=== PATIENT | female | born 1935 | race Hispanic/Latino ===

== ENCOUNTER → 2020-10-11 | Outpatient (CLI) | payer OTHER | END | disposition home or self-care (01) | LOC: OIH 16:31 | PROVIDERS: ATTEND Internal Medicine Cardiovascular Disease | DX: Z13.6 Encounter for screening for cardiovascular disorders (principal) | CPT/HCPCS: 75571 ==

== ENCOUNTER 2021-07-14 13:17 | Emergency (ER) | payer MEDICARE, OTHER ==
[~2021-07-14] VITALS: Ht 157.5 cm; Wt 65.8 kg
[2021-07-14 13:59] LABS: BASOPHILS % (AUTO) 0.4 % (0.0-5.0); EOSINOPHILS % (AUTO) 1.9 % (0.0-8.0); HEMATOCRIT 31.2 % (36-48); LYMPHOCYTES % (AUTO) 19.6 % (21.0-51.0); MEAN CORPUSCULAR HEMOGLOBIN 30.6 pg (27.0-33.0); MEAN CORPUSCULAR VOLUME 90.2 fL (79-99); MONOCYTES % (AUTO) 4.9 % (3.0-13.0); NEUTROPHILS % (AUTO) 72.5 % (40.0-77.0); PLATELET COUNT (AUTO) 422 K/uL (130-400); RED BLOOD CELL COUNT(AUTO) 3.46 MIL/uL (4.00-5.50); RED CELL DISTRIBUTION WIDTH 13.2 % (11.0-15.5); WHITE BLOOD COUNT (AUTO) 10.9 K/uL (4.8-10.8)
[2021-07-14] MEDS ORDERED: KETOROLAC 15MG/ML VIAL (15MG/ML) IV ONE (14:00)
[2021-07-14 14:21] LABS: ALBUMIN 3.7 g/dL (3.5-5.0); B-TYPE NATRIURETIC PEPTIDE 93 pg/mL (0-100); BILIRUBIN,TOTAL 0.2 mg/dL (0.2-1.0); CREATININE 1.1 mg/dL (0.5-1.5); POTASSIUM 4.3 mmol/L (3.5-5.1); TOTAL PROTEIN, SERUM 6.9 g/dL (6.0-8.3)
[2021-07-14] MEDS ORDERED: [UNRECOGNIZED DRUG - CODE] PO (16:20)
[2021-07-14 16:39] VITALS: BP 164/73
== END 2021-07-14 16:40 | disposition home or self-care (01) ==
LOC: EDH 13:17
DX: R07.89 Other chest pain (principal); E78.00 Pure hypercholesterolemia, unspecified; I11.9 Hypertensive heart disease without heart failure; E11.9 Type 2 diabetes mellitus without complications; Z79.1 Long term (current) use of non-steroidal anti-inflammatories (NSAID)
CPT/HCPCS: 36415; 71045; 80053; 83880; 84484; 85025; 93005; 96374; 99285; J1885

== ENCOUNTER 2022-05-19 15:05 | Emergency (ER) | payer MEDICARE ==
[~2022-05-19] VITALS: Ht 157.5 cm; Wt 65.8 kg
[~2022-05-19 15:05] MED LIST changes: -KCL 20 MEQ ERTAB PO ONE; -LORAZEPAM 1 MG TABLET ONE; -LORAZEPAM 1 MG TABLET PO ONE; -MAGNESIUM OXIDE 400 MG TABLET PO ONE
[2022-05-19 15:51] LABS: BASOPHILS % (AUTO) 0.2 % (0.0-5.0); HEMATOCRIT 32.6 % (36-48); LYMPHOCYTES % (AUTO) 18.8 % (21.0-51.0); MEAN CORPUSCULAR HEMOGLOBIN 30.3 pg (27.0-33.0); MEAN CORPUSCULAR HGB CONC 34.4 g/dL (32.0-36.0); MEAN CORPUSCULAR VOLUME 88.1 fL (79-99); MONOCYTES % (AUTO) 5.8 % (3.0-13.0); NEUTROPHILS % (AUTO) 71.6 % (40.0-77.0); PLATELET COUNT (AUTO) 362 K/uL (130-400); RED CELL DISTRIBUTION WIDTH 12.7 % (11.0-15.5); WHITE BLOOD COUNT (AUTO) 12.5 K/uL (4.8-10.8)
[2022-05-19 15:52] VITALS: BP 175/52
[2022-05-19 16:03] LABS: POTASSIUM 3.7 mmol/L (3.5-5.1)
[2022-05-19 16:11] LABS: ALBUMIN 3.7 g/dL (3.5-5.0); TOTAL PROTEIN, SERUM 7.1 g/dL (6.0-8.3)
[2022-05-19] MEDS ORDERED: DIAZEPAM 5 MG/ML 2 ML SYG IVP ONE (16:30)
== END 2022-05-19 17:30 | disposition home or self-care (01) ==
LOC: EDH 15:05
DX: F15.980 Other stimulant use, unspecified with stimulant-induced anxiety disorder (principal); E11.9 Type 2 diabetes mellitus without complications; E78.00 Pure hypercholesterolemia, unspecified; I10 Essential (primary) hypertension; Z98.890 Other specified postprocedural states
CPT/HCPCS: 99284; 96374; 84484; 80053; 85025; 36415; 93005; J3360

== ENCOUNTER → 2022-05-19 | Emergency (ER) | payer MEDICARE ==
[~2022-05-19] VITALS: Ht 157.5 cm; Wt 59.0 kg
[~2022-05-19] MED LIST: KCL 20 MEQ ERTAB PO ONE; LORAZEPAM 1 MG TABLET ONE; LORAZEPAM 1 MG TABLET PO ONE; MAGNESIUM OXIDE 400 MG TABLET PO ONE; [UNRECOGNIZED DRUG - CODE] PO
[2022-05-19 21:24] LABS: BASOPHILS % (AUTO) 0.3 % (0.0-5.0); EOSINOPHILS % (AUTO) 0.2 % (0.0-8.0); HEMATOCRIT 35.2 % (36-48); LYMPHOCYTES % (AUTO) 10.3 % (21.0-51.0); MEAN CORPUSCULAR HEMOGLOBIN 30.3 pg (27.0-33.0); MEAN CORPUSCULAR HGB CONC 34.7 g/dL (32.0-36.0); MEAN CORPUSCULAR VOLUME 87.6 fL (79-99); MONOCYTES % (AUTO) 3.9 % (3.0-13.0); NEUTROPHILS % (AUTO) 84.5 % (40.0-77.0); PLATELET COUNT (AUTO) 357 K/uL (130-400); RED BLOOD CELL COUNT(AUTO) 4.02 MIL/uL (4.00-5.50); RED CELL DISTRIBUTION WIDTH 12.6 % (11.0-15.5); WHITE BLOOD COUNT (AUTO) 14.4 K/uL (4.8-10.8)
[2022-05-19 21:32] LABS: CARBON DIOXIDE 26 mmol/L (21-32); CHLORIDE 94 mmol/L (101-111); CREATININE 1.1 mg/dL (0.5-1.5); GLOMERULAR FILTR. RATE CALC 50 mL/min (>60); GLUCOSE,RANDOM 207 mg/dL (70-105); POTASSIUM 3.3 mmol/L (3.5-5.1); SODIUM SERUM 130 mmol/L (136-145); UREA NITROGEN, BLOOD 17 mg/dL (7-18)
[2022-05-19 21:38] LABS: ALANINE AMINOTRANSFERASE 22 U/L (12-78); ALBUMIN 3.9 g/dL (3.5-5.0); ALCOHOL, BLOOD < 3 mg/dL (0-10); ASPARTATE AMINOTRANSFERASE 27 U/L (10-37); CREATINE KINASE, TOTAL 145 U/L (21-232); TOTAL PROTEIN, SERUM 7.6 g/dL (6.0-8.3)
[2022-05-19 21:40] LABS: ACETAMINOPHEN < 1 mcg/mL (10-30); SALICYLATE < 2.8 mg/dL (2.8-20.0)
[2022-05-19 21:43] LABS: APPEARANCE,URINE CLEAR (CLEAR); BILIRUBIN,URINE NEGATIVE (NEGATIVE); COLOR,URINE YELLOW (YELLOW); GLUCOSE, URINE (UA) 500 mg/dL (NEGATIVE); KETONES,URINE NEGATIVE (NEGATIVE); LEUKOCYTE ESTERASE ,URINE NEGATIVE Leu/uL (NEGATIVE); NITRATE,URINE NEGATIVE (NEGATIVE); OCCULT BLOOD,URINE NEGATIVE (NEGATIVE); PH,URINE 5.5 (5.0-8.0); PROTEIN,URINE 20 mg/dL (NEGATIVE); UROBILINOGEN,URINE 0.2 mg/dL (0.2-1.0)
[2022-05-19 21:45] LABS: AMPHET/METH SCREEN,URINE NEGATIVE (NEGATIVE); BARBITURATE SCREEN, URINE NEGATIVE (NEGATIVE); BENZODIAZEPINES SCREEN,URINE NEGATIVE (NEGATIVE); CANNABINOID SCREEN,URINE NEGATIVE (NEGATIVE); COCAINE SCREEN,URINE NEGATIVE (NEGATIVE); PHENCYCLIDINE SCREEN,URINE NEGATIVE (NEGATIVE)
[2022-05-19 21:51] LABS: SQUAMOUS EPITHELIAL CELL,UR RARE /HPF (0-2); WBC,URINE 0-1 /HPF (0-1)
[2022-05-20 01:36] VITALS: BP 134/75
== END | disposition home or self-care (01) ==
LOC: EDH 20:15
DX: R20.8 Other disturbances of skin sensation (principal); F41.9 Anxiety disorder, unspecified; G47.00 Insomnia, unspecified; E11.9 Type 2 diabetes mellitus without complications; I10 Essential (primary) hypertension; E78.00 Pure hypercholesterolemia, unspecified; F32.A Depression, unspecified; Z98.890 Other specified postprocedural states
CPT/HCPCS: 99285; 70450; 82550; 83735; 80053; 80305; 85025; 83605; 36415; 74176; 93005; 81001; G0481

== ENCOUNTER 2022-06-30 16:05 | Emergency (ER) | payer MEDICARE ==
[~2022-06-30] VITALS: Ht 154.9 cm; Wt 64.0 kg
[2022-06-30 16:45] LABS: BASOPHILS % (AUTO) 0.4 % (0.0-5.0); EOSINOPHILS % (AUTO) 4.1 % (0.0-8.0); HEMATOCRIT 33.2 % (36-48); LYMPHOCYTES % (AUTO) 25.8 % (21.0-51.0); MEAN CORPUSCULAR HEMOGLOBIN 30.3 pg (27.0-33.0); MONOCYTES % (AUTO) 6.3 % (3.0-13.0); PLATELET COUNT (AUTO) 367 K/uL (130-400); RED BLOOD CELL COUNT(AUTO) 3.73 MIL/uL (4.00-5.50); RED CELL DISTRIBUTION WIDTH 14.5 % (11.0-15.5); WHITE BLOOD COUNT (AUTO) 8.1 K/uL (4.8-10.8)
[2022-06-30 16:53] LABS: POTASSIUM 3.7 mmol/L (3.5-5.1)
[2022-06-30 16:55] LABS: INR 1.02 (0.85-1.15); PROTHROMBIN TIME 11.1 SEC (9.6-11.6)
[2022-06-30 16:56] LABS: PARTIAL THROMBOPLASTIN TIME 24.3 SEC (26.3-35.5)
[2022-06-30 16:58] LABS: ALBUMIN 3.6 g/dL (3.5-5.0); TOTAL PROTEIN, SERUM 7.3 g/dL (6.0-8.3)
[2022-06-30 18:29] VITALS: BP 167/56
== END 2022-06-30 18:27 | disposition home or self-care (01) ==
LOC: EDH 16:05
DX: S00.03XA Contusion of scalp, initial encounter (principal); E11.9 Type 2 diabetes mellitus without complications; E78.00 Pure hypercholesterolemia, unspecified; F03.90 Unspecified dementia, unspecified severity, without behavioral disturbance, psychotic disturbance, mood disturbance, and anxiety; I10 Essential (primary) hypertension; W18.39XA Other fall on same level, initial encounter; Y93.89 Activity, other specified; Y92.89 Other specified places as the place of occurrence of the external cause; Y99.8 Other external cause status
CPT/HCPCS: 36415; 70450; 72125; 80053; 85025; 85610; 85730; 93005

== ENCOUNTER 2022-07-26 20:22 | Observation (INO) | payer MEDICARE ==
[~2022-07-26] VITALS: Ht 157.5 cm; Wt 60.3 kg
[2022-07-26 20:44] LABS: BASOPHILS % (AUTO) 0.2 % (0.0-5.0); EOSINOPHILS % (AUTO) 1.6 % (0.0-8.0); HEMATOCRIT 34.6 % (36-48); LYMPHOCYTES % (AUTO) 24.8 % (21.0-51.0); MEAN CORPUSCULAR HEMOGLOBIN 30.3 pg (27.0-33.0); MEAN CORPUSCULAR HGB CONC 34.1 g/dL (32.0-36.0); MEAN CORPUSCULAR VOLUME 88.7 fL (79-99); MONOCYTES % (AUTO) 8.4 % (3.0-13.0); NEUTROPHILS % (AUTO) 64.7 % (40.0-77.0); PLATELET COUNT (AUTO) 367 K/uL (130-400); RED CELL DISTRIBUTION WIDTH 13.8 % (11.0-15.5); WHITE BLOOD COUNT (AUTO) 8.7 K/uL (4.8-10.8)
[2022-07-26 21:01] LABS: CREATININE 0.9 mg/dL (0.5-1.5); POTASSIUM 3.8 mmol/L (3.5-5.1)
[2022-07-26 21:12] LABS: ALBUMIN 3.5 g/dL (3.5-5.0); TOTAL PROTEIN, SERUM 7.1 g/dL (6.0-8.3)
[2022-07-26 21:28] LABS: APPEARANCE,URINE CLEAR (CLEAR); BILIRUBIN,URINE NEGATIVE (NEGATIVE); COLOR,URINE YELLOW (YELLOW); GLUCOSE, URINE (UA) NEGATIVE (NEGATIVE); KETONES,URINE NEGATIVE (NEGATIVE); LEUKOCYTE ESTERASE ,URINE MODERATE Leu/uL (NEGATIVE); NITRATE,URINE NEGATIVE (NEGATIVE); OCCULT BLOOD,URINE TRACE-INTACT (NEGATIVE); PROTEIN,URINE NEGATIVE (NEGATIVE)
[2022-07-26] MEDS ORDERED: 0.9% NACL 500ML IV.SOLN 500 ML IV ONE (21:30)
[2022-07-26 21:37] LABS: BACTERIA,URINE Few /HPF (None Seen)
[2022-07-26 21:38] LABS: COARSE GRANULAR CASTS,URINE 0-2 /LPF (None Seen)
[2022-07-26] MEDS ORDERED: HYDRALAZINE 20MG/ML VIAL IV STA (23:23)
[2022-07-26] MEDS ORDERED: HYDRALAZINE 20MG/ML VIAL ONE (23:23)
[2022-07-26] MEDS ORDERED: LABETALOL 20MG VIAL IV ONE (23:30)
[2022-07-27] MEDS ORDERED: ONDANSETRON 4MG INJ IV PRN
[2022-07-27] MEDS ORDERED: GLUCAGON 1MG KIT 1 MG ML IM PRN
[2022-07-27] MEDS ORDERED: ACETAMINOPHEN 325 MG TAB PO PRN ×2
[2022-07-27] MEDS ORDERED: DEXTROSE 50%-WATER 50 ML DISP.SYRIN IV PRN
[2022-07-27] MEDS: METOPROLOL TARTRATE 25 MG TAB PO SCH ×2 (00:14→08:50)
[2022-07-27 01:40] LABS: HEMOGLOBIN A1C 5.7 % (4.0-6.0)
[2022-07-27 02:27] VITALS: BP 167/45
[2022-07-27] MEDS ORDERED: AEC81 PO (03:19)
[2022-07-27] MEDS ORDERED: AMLO-258 PO (03:19)
[2022-07-27] MEDS ORDERED: CARV12.511 PO (03:19)
[2022-07-27] MEDS ORDERED: MV C1CAP5 PO (03:19)
[2022-07-27] MEDS ORDERED: TELM80TA10 PO ×3 (03:19→12:58)
[2022-07-27] MEDS ORDERED: FENO160T16 PO (03:19)
[2022-07-27] MEDS ORDERED: DONE5TAB33 PO (03:19)
[2022-07-27] MEDS ORDERED: TRAZ-185 PO (03:19)
[2022-07-27 04:36] VITALS: BP 148/39
[2022-07-27 05:47] LABS: BASOPHILS % (AUTO) 0.4 % (0.0-5.0); EOSINOPHILS % (AUTO) 2.4 % (0.0-8.0); HEMATOCRIT 32.4 % (36-48); LYMPHOCYTES % (AUTO) 27.5 % (21.0-51.0); MEAN CORPUSCULAR HEMOGLOBIN 29.7 pg (27.0-33.0); MEAN CORPUSCULAR HGB CONC 33.3 g/dL (32.0-36.0); MONOCYTES % (AUTO) 7.5 % (3.0-13.0); PLATELET COUNT (AUTO) 350 K/uL (130-400); RED BLOOD CELL COUNT(AUTO) 3.64 MIL/uL (4.00-5.50); RED CELL DISTRIBUTION WIDTH 13.7 % (11.0-15.5); WHITE BLOOD COUNT (AUTO) 8.1 K/uL (4.8-10.8)
[2022-07-27 06:08] LABS: CREATININE 0.8 mg/dL (0.5-1.5); MAGNESIUM 1.9 mg/dL (1.80-2.40); POTASSIUM 3.3 mmol/L (3.5-5.1); TOTAL PROTEIN, SERUM 6.3 g/dL (6.0-8.3)
[2022-07-27] MEDS: INSULIN HUMULIN R 100 UNIT/ML 3ML SQ SCH ×2 (06:44→11:30)
[2022-07-27] MEDS ORDERED: ENOXAPARIN SODIUM 30 MG/0.3 ML SQ SCH (09:00)
[2022-07-27] MEDS ORDERED: ASPIRIN 81 MG EC TAB PO SCH (09:00)
[2022-07-27] MEDS ORDERED: FAMOTIDINE 20MG TAB PO SCH (09:00)
[2022-07-27] MEDS ORDERED: LIDOCAINE HCL-MPF 1% 2ML VIAL IV PRN (09:30)
[2022-07-27] MEDS ORDERED: POTASSIUM CHLORIDE 10% ELIXIR 20 MEQ/15 ML UDCUP PO PRN (09:30)
[2022-07-27] MEDS ORDERED: POTASSIUM CHLORIDE 20MEQ/100ML 100 ML IV PRN (09:30)
[2022-07-27] MEDS ORDERED: KCL 20 MEQ ERTAB PO PRN (09:30)
[2022-07-27] MEDS ORDERED: FE FUMARATE/FA/MV, MIN COMB#15 1 TAB PO SCH (11:03)
[2022-07-27] MEDS ORDERED: NITROGLYCERIN 0.4 MG SL TAB SL PRN ×2 (12:00)
[2022-07-27] MEDS ORDERED: LOSARTAN 100 MG TABLET PO SCH ×2 (12:01→21:00)
[2022-07-27] MEDS ORDERED: Nitroglycerin 0.4MG Sl Tab SL (12:50)
[2022-07-27] MEDS ORDERED: CARV25TA PO (12:50)
[2022-07-27] MEDS ORDERED: TRAZODONE HCL 50 MG TAB PO SCH (21:00)
[2022-07-27] MEDS ORDERED: CARVEDILOL 25 MG TABLET PO SCH (21:00)
[2022-07-27] MEDS ORDERED: ISOSORBIDE DINITRATE 10MG TAB PO SCH (21:00)
[2022-07-28] MEDS ORDERED: DONEPEZIL HCL 5 MG TAB PO SCH (09:00)
[2022-07-28] MEDS ORDERED: FENOFIBRATE 160 MG PO SCH (09:00)
[2022-07-28] MEDS ORDERED: AMLODIPINE 5 MG TAB PO SCH (09:00)
== END 2022-07-27 14:00 | disposition home or self-care (01) ==
LOC: EDH 20:22 → INTOOBSV 23:55 → EDHIP 23:55 → 4BH 07-27 02:15
PROVIDERS: ADMIT Internal Medicine; ATTEND Internal Medicine
DX: I10 Essential (primary) hypertension (principal); Z20.822 Contact with and (suspected) exposure to COVID-19; R82.71 Bacteriuria; I21.4 Non-ST elevation (NSTEMI) myocardial infarction; R77.8 Other specified abnormalities of plasma proteins; E78.2 Mixed hyperlipidemia; E11.9 Type 2 diabetes mellitus without complications; C64.1 Malignant neoplasm of right kidney, except renal pelvis; E78.00 Pure hypercholesterolemia, unspecified; I25.10 Atherosclerotic heart disease of native coronary artery without angina pectoris; I63.9 Cerebral infarction, unspecified; J10.1 Influenza due to other identified influenza virus with other respiratory manifestations; Z90.710 Acquired absence of both cervix and uterus; Z79.899 Other long term (current) drug therapy; Z98.890 Other specified postprocedural states
CPT/HCPCS: 99285; 96374; 71045; 87635; 83036; 83735; 84484 ×2; 80053; 85025; 87088; 87804 ×2; 81001; 36415; 93005; G0378; C9803; J0360; 80061; 82550; 82948; 83874; 93306; 93356; 96372; J1650

== ENCOUNTER 2022-07-30 13:04 | Inpatient (IN) | payer MEDICARE ==
[~2022-07-30] VITALS: Ht 160 cm; Wt 65.8 kg
[~2022-07-30 13:04] MED LIST changes: +AEC81 PO; +AMLO-258 PO; +CARV25TA PO; +DONE5TAB33 PO; +FENO160T16 PO; +MV C1CAP5 PO; +Nitroglycerin 0.4MG Sl Tab SL; +TELM80TA10 PO; +TRAZ-185 PO
[2022-07-30 13:49] LABS: BASOPHILS % (AUTO) 0.2 % (0.0-5.0); EOSINOPHILS % (AUTO) 0.8 % (0.0-8.0); HEMATOCRIT 36.9 % (36-48); LYMPHOCYTES % (AUTO) 25.5 % (21.0-51.0); MEAN CORPUSCULAR HEMOGLOBIN 30.1 pg (27.0-33.0); MEAN CORPUSCULAR HGB CONC 34.4 g/dL (32.0-36.0); MEAN CORPUSCULAR VOLUME 87.4 fL (79-99); NEUTROPHILS % (AUTO) 68.3 % (40.0-77.0); PLATELET COUNT (AUTO) 394 K/uL (130-400); RED BLOOD CELL COUNT(AUTO) 4.22 MIL/uL (4.00-5.50); RED CELL DISTRIBUTION WIDTH 13.4 % (11.0-15.5)
[2022-07-30 14:02] LABS: CARBON DIOXIDE 28 mmol/L (21-32); CHLORIDE 97 mmol/L (101-111); CREATININE 0.8 mg/dL (0.5-1.5); GLOMERULAR FILTR. RATE CALC 72 mL/min (>60); GLUCOSE,RANDOM 145 mg/dL (70-105); POTASSIUM 3.2 mmol/L (3.5-5.1); SODIUM SERUM 134 mmol/L (136-145); UREA NITROGEN, BLOOD 15 mg/dL (7-18)
[2022-07-30 14:06] LABS: ALANINE AMINOTRANSFERASE 19 U/L (12-78); ALBUMIN 3.6 g/dL (3.5-5.0); ASPARTATE AMINOTRANSFERASE 24 U/L (10-37); CREATINE KINASE, TOTAL 59 U/L (21-232); TOTAL PROTEIN, SERUM 7.3 g/dL (6.0-8.3)
[2022-07-30 14:07] LABS: CRP QUANTITATIVE < 2.00 mg/L (0.00-9.0); LIPASE < 50 U/L (114-286)
[2022-07-30] MEDS ORDERED: POTASSIUM BICARB/CIT AC 25 MEQ TABLET.EFF PO ONE (14:30)
[2022-07-30] MEDS ORDERED: NIFEDIPINE 10 MG CAP PO ONE (15:00)
[2022-07-30] MEDS ORDERED: 0.9%NACL 1000ML 1,000 ML IV SCH (15:00)
[2022-07-30] MEDS: MAGNESIUM 2GM PREMIX 50ML 50 ML IV SCH (15:05)
[2022-07-30] MEDS ORDERED: HYDRALAZINE 20MG/ML VIAL IV PRN (16:30)
[2022-07-30] MEDS ORDERED: THIAMINE HCL 100 MG/ML 2ML VIAL IVP SCH (16:30)
[2022-07-30] MEDS ORDERED: NITROGLYCERIN 0.4 MG SL TAB SL PRN (16:30)
[2022-07-30 16:55] LABS: HEMOGLOBIN A1C 5.5 % (4.0-6.0)
[2022-07-30] MEDS: Vitamin B Complex/Vit C/Folic Acid PO SCH (17:12)
[2022-07-30] MEDS: ISOSORBIDE DINITRATE 10MG TAB PO SCH (17:58)
[2022-07-30] MEDS ORDERED: PHARMACY COMMUNICATION MISC SCH (18:30)
[2022-07-30] MEDS ORDERED: BISACODYL 10 MG SUPP.RECT RC ONE (19:00)
[2022-07-30] MEDS ORDERED: CARVEDILOL 25 MG TABLET PO ONE (19:27)
[2022-07-30] MEDS: CARVEDILOL 25 MG TABLET PO SCH (20:02)
[2022-07-30] MEDS: TELMISARTAN 80 MG PO SCH (20:06)
[2022-07-30 20:47] VITALS: BP 151/56
[2022-07-30] MEDS ORDERED: LOSARTAN 100 MG TABLET PO SCH (21:00)
[2022-07-30] MEDS ORDERED: LIDOCAINE HCL-MPF 1% 2ML VIAL IV PRN (23:00)
[2022-07-30] MEDS ORDERED: KCL 20 MEQ ERTAB PO PRN (23:00)
[2022-07-31] VITALS (7 sets, daily range): BP systolic 103–169; BP diastolic 38–76
[2022-07-31] MEDS: ISOSORBIDE DINITRATE 10MG TAB PO SCH ×2 (04:00→16:06)
[2022-07-31 04:02] LABS: APPEARANCE,URINE CLEAR (CLEAR); BILIRUBIN,URINE NEGATIVE (NEGATIVE); COLOR,URINE LIGHT-YELLOW (YELLOW); GLUCOSE, URINE (UA) NEGATIVE (NEGATIVE); KETONES,URINE NEGATIVE (NEGATIVE); LEUKOCYTE ESTERASE ,URINE NEGATIVE Leu/uL (NEGATIVE); NITRATE,URINE NEGATIVE (NEGATIVE); OCCULT BLOOD,URINE NEGATIVE (NEGATIVE); PROTEIN,URINE NEGATIVE (NEGATIVE); UROBILINOGEN,URINE 0.2 mg/dL (0.2-1.0)
[2022-07-31 04:40] LABS: BASOPHILS % (AUTO) 0.3 % (0.0-5.0); EOSINOPHILS % (AUTO) 1.4 % (0.0-8.0); HEMATOCRIT 31.3 % (36-48); MEAN CORPUSCULAR HEMOGLOBIN 30.8 pg (27.0-33.0); MEAN CORPUSCULAR HGB CONC 34.8 g/dL (32.0-36.0); MEAN CORPUSCULAR VOLUME 88.4 fL (79-99); MONOCYTES % (AUTO) 5.8 % (3.0-13.0); NEUTROPHILS % (AUTO) 64.2 % (40.0-77.0); PLATELET COUNT (AUTO) 364 K/uL (130-400); RED BLOOD CELL COUNT(AUTO) 3.54 MIL/uL (4.00-5.50); RED CELL DISTRIBUTION WIDTH 13.4 % (11.0-15.5)
[2022-07-31 05:34] LABS: CREATININE 0.7 mg/dL (0.5-1.5); MAGNESIUM 1.9 mg/dL (1.80-2.40); TOTAL PROTEIN, SERUM 6.2 g/dL (6.0-8.3)
[2022-07-31 05:49] LABS: POTASSIUM 2.9 mmol/L (3.5-5.1)
[2022-07-31] MEDS: POTASSIUM CHLORIDE 20MEQ/100ML 100 ML IV PRN ×2 (06:01→10:47)
[2022-07-31] MEDS: POTASSIUM CHLORIDE 10% ELIXIR 20 MEQ/15 ML UDCUP PO PRN ×3 (06:01→10:48)
[2022-07-31] MEDS: AMLODIPINE 5 MG TAB PO SCH (08:33)
[2022-07-31] MEDS: CARVEDILOL 25 MG TABLET PO SCH ×2 (08:33→20:31)
[2022-07-31] MEDS: DONEPEZIL HCL 5 MG TAB PO SCH (08:34)
[2022-07-31] MEDS: ASPIRIN 81 MG EC TAB PO SCH (08:34)
[2022-07-31] MEDS: POLYETHYLENE GLYCOL 3350 17 GM POWD.PACK PO SCH (08:34)
[2022-07-31] MEDS: TELMISARTAN 80 MG PO SCH ×2 (08:35→20:31)
[2022-07-31] MEDS: **HM**(Fenofibrate 160 MG PO SCH (08:35)
[2022-07-31] MEDS ORDERED: [UNRECOGNIZED DRUG - MIXTURE] PO SCH (09:00)
[2022-07-31] MEDS: Vitamin B Complex/Vit C/Folic Acid PO SCH (16:06)
[2022-07-31] MEDS ORDERED: MAGNESIUM 2GM PREMIX 50ML 50 ML IV PRN (18:30)
[2022-07-31] MEDS: MAGNESIUM 2GM PREMIX 50ML 50 ML IV SCH (20:32)
[2022-07-31] MEDS ORDERED: TRAZODONE HCL 50 MG TAB PO PRN (23:20)
[2022-08-01 00:19] VITALS: BP 160/57
[2022-08-01] MEDS: ISOSORBIDE DINITRATE 10MG TAB PO SCH (03:40)
[2022-08-01 04:00] VITALS: BP 176/62
[2022-08-01 05:06] LABS: HEMATOCRIT 30.4 % (36-48); MEAN CORPUSCULAR HEMOGLOBIN 30.6 pg (27.0-33.0); MEAN CORPUSCULAR HGB CONC 34.2 g/dL (32.0-36.0); MEAN CORPUSCULAR VOLUME 89.4 fL (79-99); RED BLOOD CELL COUNT(AUTO) 3.4 MIL/uL (4.00-5.50); WHITE BLOOD COUNT (AUTO) 8.5 K/uL (4.8-10.8)
[2022-08-01 05:14] LABS: CREATININE 0.8 mg/dL (0.5-1.5); MAGNESIUM 2.2 mg/dL (1.80-2.40); POTASSIUM 3.6 mmol/L (3.5-5.1)
[2022-08-01] MEDS: POTASSIUM CHLORIDE 10% ELIXIR 20 MEQ/15 ML UDCUP PO PRN (05:20)
[2022-08-01 08:00] VITALS: BP 147/53
[2022-08-01] MEDS: POLYETHYLENE GLYCOL 3350 17 GM POWD.PACK PO SCH (08:54)
[2022-08-01] MEDS: CARVEDILOL 25 MG TABLET PO SCH (08:54)
[2022-08-01] MEDS: AMLODIPINE 5 MG TAB PO SCH (08:55)
[2022-08-01] MEDS: ASPIRIN 81 MG EC TAB PO SCH (08:55)
[2022-08-01] MEDS: DONEPEZIL HCL 5 MG TAB PO SCH (08:55)
[2022-08-01] MEDS: TELMISARTAN 80 MG PO SCH (09:00)
[2022-08-01] MEDS: **HM**(Fenofibrate 160 MG PO SCH (09:00)
[2022-08-01 12:00] VITALS: BP 143/47
[2022-08-01] MEDS ORDERED: ISOS10TA4 PO (15:03)
[2022-08-01] MEDS ORDERED: SACU1TAB4 PO (15:07)
[2022-08-01 16:00] VITALS: BP 163/51
[2022-08-01] MEDS ORDERED: ENOXAPARIN SODIUM 40 MG/0.4 ML SYRINGE SQ SCH (20:00)
== END 2022-08-01 18:20 | disposition home or self-care (01) | DRG 305 ==
LOC: EDH 13:04 → EDHIP 16:16 → 4DH 18:43
PROVIDERS: ADMIT Internal Medicine; ATTEND Internal Medicine
DX: I16.0 Hypertensive urgency (principal); E44.0 Moderate protein-calorie malnutrition; I24.8 Other forms of acute ischemic heart disease; I50.32 Chronic diastolic (congestive) heart failure; Z20.822 Contact with and (suspected) exposure to COVID-19; E11.9 Type 2 diabetes mellitus without complications; E78.00 Pure hypercholesterolemia, unspecified; E83.42 Hypomagnesemia; E86.0 Dehydration; E87.6 Hypokalemia; F03.90 Unspecified dementia, unspecified severity, without behavioral disturbance, psychotic disturbance, mood disturbance, and anxiety; I11.0 Hypertensive heart disease with heart failure; I25.10 Atherosclerotic heart disease of native coronary artery without angina pectoris; I48.91 Unspecified atrial fibrillation; K59.00 Constipation, unspecified; R62.7 Adult failure to thrive; Z79.899 Other long term (current) drug therapy; Z85.528 Personal history of other malignant neoplasm of kidney; Z90.710 Acquired absence of both cervix and uterus; Z68.25 Body mass index [BMI] 25.0-25.9, adult
CPT/HCPCS: 36415; 70450; 71045; 74176; 80048; 80053; 80061; 81003; 82550; 82948; 83036; 83690; 83735; 83874; 84145; 84443; 84484; 85025; 85027; 85651; 86140; 87635; 87804; 93005; 93306; 93356; 96372; 97039; G0378; J1650; J3411; J3475; J3480; J3490

== ENCOUNTER 2022-08-09 13:19 | Emergency (ER) | payer MEDICARE ==
[~2022-08-09] VITALS: Ht 157.5 cm; Wt 59.9 kg
[~2022-08-09 13:19] MED LIST changes: +ISOS10TA4 PO; +SACU1TAB4 PO; -TELM80TA10 PO
[2022-08-09] MEDS ORDERED: LACTATED RINGERS 1000ML 500 ML IV ONE (13:30)
[2022-08-09] MEDS ORDERED: ONDANSETRON 4MG INJ IVP ONE (13:30)
[2022-08-09 13:56] LABS: BASOPHILS % (AUTO) 0.2 % (0.0-5.0); EOSINOPHILS % (AUTO) 1.1 % (0.0-8.0); HEMATOCRIT 33.7 % (36-48); MEAN CORPUSCULAR HEMOGLOBIN 30.6 pg (27.0-33.0); MEAN CORPUSCULAR HGB CONC 34.1 g/dL (32.0-36.0); MEAN CORPUSCULAR VOLUME 89.6 fL (79-99); MONOCYTES % (AUTO) 5.7 % (3.0-13.0); NEUTROPHILS % (AUTO) 72.7 % (40.0-77.0); PLATELET COUNT (AUTO) 360 K/uL (130-400); RED BLOOD CELL COUNT(AUTO) 3.76 MIL/uL (4.00-5.50); RED CELL DISTRIBUTION WIDTH 13.7 % (11.0-15.5); WHITE BLOOD COUNT (AUTO) 9.2 K/uL (4.8-10.8)
[2022-08-09 14:05] LABS: CREATININE 0.8 mg/dL (0.5-1.5); POTASSIUM 3.7 mmol/L (3.5-5.1)
[2022-08-09 14:11] LABS: APPEARANCE,URINE CLOUDY (CLEAR); BILIRUBIN,URINE NEGATIVE (NEGATIVE); COLOR,URINE LIGHT-YELLOW (YELLOW); GLUCOSE, URINE (UA) NEGATIVE (NEGATIVE); KETONES,URINE NEGATIVE (NEGATIVE); LEUKOCYTE ESTERASE ,URINE 75 Leu/uL (NEGATIVE); NITRATE,URINE NEGATIVE (NEGATIVE); OCCULT BLOOD,URINE NEGATIVE (NEGATIVE); PROTEIN,URINE NEGATIVE (NEGATIVE)
[2022-08-09 14:14] LABS: ALBUMIN 3.2 g/dL (3.5-5.0); TOTAL PROTEIN, SERUM 6.2 g/dL (6.0-8.3)
[2022-08-09 14:16] LABS: BACTERIA,URINE RARE /HPF (None Seen); RBC,URINE 0-1 /HPF (0-1); YEAST,URINE BUDDING MOD /HPF (None Seen)
[2022-08-09] MEDS ORDERED: IOHEXOL 350 MG/ML 100ML INFUS..BTL IV ONE (14:23)
[2022-08-09] MEDS ORDERED: PANTOPRAZOLE 40 MG/VIAL IVP STA (15:36)
[2022-08-09] MEDS ORDERED: CLONIDINE HCL 0.1 MG TABLET ONE (16:59)
[2022-08-09] MEDS ORDERED: CLONIDINE HCL 0.1 MG TABLET PO ONE (17:00)
[2022-08-09] MEDS ORDERED: CEPH500B PO (17:45)
[2022-08-09] MEDS ORDERED: PANT40TA PO (17:45)
[2022-08-09 18:15] VITALS: BP 158/48
== END 2022-08-09 18:05 | disposition home or self-care (01) ==
LOC: EDH 13:19
DX: K29.70 Gastritis, unspecified, without bleeding (principal); N39.0 Urinary tract infection, site not specified; C64.1 Malignant neoplasm of right kidney, except renal pelvis; I10 Essential (primary) hypertension; Z79.01 Long term (current) use of anticoagulants; Z79.82 Long term (current) use of aspirin; Z90.710 Acquired absence of both cervix and uterus
CPT/HCPCS: 99285; 74177; 96374; 96361; 71045; 96375; 82270; 86677; 84484; 80053; 83690; 85025; 87088; 81001; 36415; 93005; J7120; J2405; C9113; Q9967

== ENCOUNTER 2022-11-01 11:18 | Emergency (ER) | payer MEDICARE ==
[~2022-11-01] VITALS: Ht 157.5 cm; Wt 68.0 kg
[~2022-11-01 11:18] MED LIST changes: +CEPH500B PO; +PANT40TA PO
[2022-11-01 12:24] LABS: BASOPHILS % (AUTO) 0.3 % (0.0-5.0); EOSINOPHILS % (AUTO) 5.1 % (0.0-8.0); HEMATOCRIT 31.1 % (36-48); LYMPHOCYTES % (AUTO) 31.9 % (21.0-51.0); MEAN CORPUSCULAR HEMOGLOBIN 31.8 pg (27.0-33.0); MEAN CORPUSCULAR HGB CONC 34.4 g/dL (32.0-36.0); MEAN CORPUSCULAR VOLUME 92.3 fL (79-99); MONOCYTES % (AUTO) 8.3 % (3.0-13.0); NEUTROPHILS % (AUTO) 54.1 % (40.0-77.0); PLATELET COUNT (AUTO) 314 K/uL (130-400); RED BLOOD CELL COUNT(AUTO) 3.37 MIL/uL (4.00-5.50); RED CELL DISTRIBUTION WIDTH 13.4 % (11.0-15.5); WHITE BLOOD COUNT (AUTO) 5.9 K/uL (4.8-10.8)
[2022-11-01 12:41] LABS: CREATININE 1.1 mg/dL (0.5-1.5); POTASSIUM 3.7 mmol/L (3.5-5.1)
[2022-11-01 12:45] LABS: ALBUMIN 2.8 g/dL (3.5-5.0); MAGNESIUM 1.7 mg/dL (1.80-2.40); TOTAL PROTEIN, SERUM 5.8 g/dL (6.0-8.3)
[2022-11-01] MEDS ORDERED: MIRT30TA2 PO (12:45)
[2022-11-01] MEDS ORDERED: MAGNESIUM 2GM PREMIX 50ML 50 ML IV SCH (13:00)
[2022-11-01] MEDS ORDERED: 0.9%NACL 1000ML 1,000 ML IV ONE (13:00)
[2022-11-01 14:08] VITALS: BP 162/80
[2022-11-02] MEDS ORDERED: CEPH500B PO (20:30)
== END 2022-11-01 14:16 | disposition home or self-care (01) ==
LOC: EDH 11:18
DX: R63.0 Anorexia (principal); F03.90 Unspecified dementia, unspecified severity, without behavioral disturbance, psychotic disturbance, mood disturbance, and anxiety; D64.9 Anemia, unspecified; I10 Essential (primary) hypertension; Z79.899 Other long term (current) drug therapy; Z87.440 Personal history of urinary (tract) infections; Z79.82 Long term (current) use of aspirin; Z90.710 Acquired absence of both cervix and uterus; Z98.890 Other specified postprocedural states
CPT/HCPCS: 36415; 71045; 80053; 83735; 84484; 85025; 93005

== ENCOUNTER 2022-11-02 18:04 | Emergency (ER) | payer MEDICARE ==
[~2022-11-02] VITALS: Ht 175.3 cm; Wt 59.0 kg
[~2022-11-02 18:04] MED LIST changes: +MIRT30TA2 PO
[2022-11-02 19:23] LABS: BASOPHILS % (AUTO) 0.4 % (0.0-5.0); EOSINOPHILS % (AUTO) 2.5 % (0.0-8.0); HEMATOCRIT 32.1 % (36-48); LYMPHOCYTES % (AUTO) 29.7 % (21.0-51.0); MEAN CORPUSCULAR HEMOGLOBIN 31.5 pg (27.0-33.0); MEAN CORPUSCULAR HGB CONC 34.3 g/dL (32.0-36.0); MONOCYTES % (AUTO) 6.8 % (3.0-13.0); NEUTROPHILS % (AUTO) 60.2 % (40.0-77.0); PLATELET COUNT (AUTO) 317 K/uL (130-400); RED BLOOD CELL COUNT(AUTO) 3.49 MIL/uL (4.00-5.50); RED CELL DISTRIBUTION WIDTH 13.2 % (11.0-15.5); WHITE BLOOD COUNT (AUTO) 7.2 K/uL (4.8-10.8)
[2022-11-02 19:27] VITALS: BP 152/58
[2022-11-02 19:36] LABS: CARBON DIOXIDE 25 mmol/L (21-32); CHLORIDE 101 mmol/L (101-111); CREATININE 0.9 mg/dL (0.5-1.5); GLOMERULAR FILTR. RATE CALC 63 mL/min (>60); GLUCOSE,RANDOM 114 mg/dL (70-105); POTASSIUM 3.5 mmol/L (3.5-5.1); SODIUM SERUM 134 mmol/L (136-145); UREA NITROGEN, BLOOD 12 mg/dL (7-18)
[2022-11-02 19:49] LABS: ALANINE AMINOTRANSFERASE 14 U/L (12-78); ASPARTATE AMINOTRANSFERASE 19 U/L (10-37); LIPASE < 50 U/L (114-286); TOTAL PROTEIN, SERUM 5.9 g/dL (6.0-8.3)
[2022-11-02 19:54] LABS: APPEARANCE,URINE CLEAR (CLEAR); BILIRUBIN,URINE NEGATIVE (NEGATIVE); COLOR,URINE COLORLESS (YELLOW); GLUCOSE, URINE (UA) NEGATIVE (NEGATIVE); KETONES,URINE NEGATIVE (NEGATIVE); LEUKOCYTE ESTERASE ,URINE NEGATIVE Leu/uL (NEGATIVE); NITRATE,URINE 1+ (NEGATIVE); OCCULT BLOOD,URINE NEGATIVE (NEGATIVE); PROTEIN,URINE NEGATIVE (NEGATIVE); UROBILINOGEN,URINE 0.2 mg/dL (0.2-1.0)
[2022-11-02 20:02] LABS: BACTERIA,URINE RARE /HPF (None Seen); RBC,URINE 0-1 /HPF (0-1); SQUAMOUS EPITHELIAL CELL,UR RARE /HPF (0-2)
[2022-11-02] MEDS ORDERED: CEPH500B PO (20:30)
[2022-11-02] MEDS ORDERED: CEFTRIAXONE 1G VIAL IVP ONE (20:30)
== END 2022-11-02 20:46 | disposition home or self-care (01) ==
LOC: EDH 18:04
DX: N39.0 Urinary tract infection, site not specified (principal); F03.90 Unspecified dementia, unspecified severity, without behavioral disturbance, psychotic disturbance, mood disturbance, and anxiety; N28.9 Disorder of kidney and ureter, unspecified; I10 Essential (primary) hypertension; E78.00 Pure hypercholesterolemia, unspecified; Z79.899 Other long term (current) drug therapy; Z90.710 Acquired absence of both cervix and uterus
CPT/HCPCS: 99284; 96374; 84484; 80053; 83690; 85025; 87077; 87088; 87186; 81001; 36415; 93005; J0696 ×2

== ENCOUNTER 2022-11-17 19:27 | Emergency (ER) | payer MEDICARE ==
[2022-11-17 19:51] LABS: BASOPHILS % (AUTO) 0.3 % (0.0-5.0); EOSINOPHILS % (AUTO) 1.6 % (0.0-8.0); HEMATOCRIT 30.5 % (36-48); LYMPHOCYTES % (AUTO) 28.9 % (21.0-51.0); MEAN CORPUSCULAR HEMOGLOBIN 31.7 pg (27.0-33.0); MEAN CORPUSCULAR HGB CONC 34.4 g/dL (32.0-36.0); MEAN CORPUSCULAR VOLUME 92.1 fL (79-99); MONOCYTES % (AUTO) 8.7 % (3.0-13.0); NEUTROPHILS % (AUTO) 60.2 % (40.0-77.0); PLATELET COUNT (AUTO) 304 K/uL (130-400); RED BLOOD CELL COUNT(AUTO) 3.31 MIL/uL (4.00-5.50); RED CELL DISTRIBUTION WIDTH 13.2 % (11.0-15.5); WHITE BLOOD COUNT (AUTO) 6.3 K/uL (4.8-10.8)
[2022-11-17] MEDS ORDERED: MIRT-22 PO (19:54)
[2022-11-17] MEDS ORDERED: NIFE20CA PO (19:54)
[2022-11-17] MEDS ORDERED: BUSP5TAB3 PO (19:54)
[2022-11-17] MEDS ORDERED: MEMA5TAB42 PO (19:54)
[2022-11-17 20:00] LABS: CARBON DIOXIDE 28 mmol/L (21-32); CHLORIDE 100 mmol/L (101-111); CREATININE 0.9 mg/dL (0.5-1.5); GLOMERULAR FILTR. RATE CALC 61 mL/min (>90); GLUCOSE,RANDOM 116 mg/dL (70-105); POTASSIUM 3.7 mmol/L (3.5-5.1); SODIUM SERUM 133 mmol/L (136-145); UREA NITROGEN, BLOOD 21 mg/dL (7-18)
[2022-11-17 20:09] LABS: ALANINE AMINOTRANSFERASE 15 U/L (12-78); ALBUMIN 2.8 g/dL (3.5-5.0); ASPARTATE AMINOTRANSFERASE 19 U/L (10-37); TOTAL PROTEIN, SERUM 5.5 g/dL (6.0-8.3)
[2022-11-17 20:13] LABS: LIPASE < 50 U/L (114-286)
[2022-11-17] MEDS ORDERED: KETOROLAC 15MG/ML VIAL (15MG/ML) ONE (20:25)
[2022-11-17] MEDS ORDERED: KETOROLAC 15MG/ML VIAL (15MG/ML) IV ONE (20:30)
[2022-11-17 20:43] LABS: APPEARANCE,URINE CLOUDY (CLEAR); BILIRUBIN,URINE NEGATIVE (NEGATIVE); COLOR,URINE YELLOW (YELLOW); GLUCOSE, URINE (UA) NEGATIVE (NEGATIVE); KETONES,URINE NEGATIVE (NEGATIVE); LEUKOCYTE ESTERASE ,URINE NEGATIVE Leu/uL (NEGATIVE); NITRATE,URINE NEGATIVE (NEGATIVE); OCCULT BLOOD,URINE NEGATIVE (NEGATIVE); PROTEIN,URINE NEGATIVE (NEGATIVE); UROBILINOGEN,URINE 0.2 mg/dL (0.2-1.0)
[2022-11-17 20:50] LABS: BACTERIA,URINE RARE /HPF (None Seen); MUCUS,URINE RARE LPF (None Seen); RBC,URINE 0-1 /HPF (0-1); SQUAMOUS EPITHELIAL CELL,UR RARE /HPF (0-2); YEAST,URINE BUDDING MOD /HPF (None Seen)
[2022-11-17] MEDS ORDERED: CLONIDINE HCL 0.1 MG TABLET PO STA (21:34)
[2022-11-17] MEDS ORDERED: CLONIDINE HCL 0.1 MG TABLET ONE (21:55)
[2022-11-17] MEDS ORDERED: LACT10SO95 PO (23:19)
[2022-11-17 23:37] VITALS: BP 152/74
== END 2022-11-17 23:44 | disposition home or self-care (01) ==
LOC: EDH 19:27
DX: C64.1 Malignant neoplasm of right kidney, except renal pelvis (principal); K59.00 Constipation, unspecified; R10.31 Right lower quadrant pain; I10 Essential (primary) hypertension; E78.00 Pure hypercholesterolemia, unspecified; Z79.899 Other long term (current) drug therapy; Z79.82 Long term (current) use of aspirin; Z90.710 Acquired absence of both cervix and uterus; Z98.890 Other specified postprocedural states
CPT/HCPCS: 99284; 74176; 96374; 71045; 84484; 80053; 83690; 85025; 81001; 36415; 93005; J1885